=== PATIENT | female | born 1965 | race Caucasian/White ===

== ENCOUNTER → 2021-04-19 11:59 | Outpatient (CLI) | payer OTHER, SELFPAY ==
--- NOTE | ~2021-04-19 | MM_ITS ---
EXAMINATION: MM scrn diandra implant BI w sarthak HISTORY: Screening mammogram TECHNIQUE: Craniocaudal and mediolateral oblique 3-D tomosynthesis images with implant displacement a nd synthetic 2-D images were generated. Craniocaudal and mediolateral oblique views of the breasts wi thout implant displacement were obtained using full field digital mammography. CAD analysis was submi tted and interpreted. COMPARISON: 11/20/2017 BREAST PARENCHYMAL COMPOSITION: The breasts are heterogenously dense, which may obscure small masses. There are bilateral subpectoral silicone implants. FINDINGS: The left breast is stable without evidence for malignancy. There are developing asymmetries bilaterally in the right breast on CC view. There are no suspicious calcifications or architectural distortion. IMPRESSION: 1. Developing right breast asymmetry laterally on CC view. 2. Additional mammographic views and possible breast ultrasound are recommended. BI-RADS Category 0: Incomplete: Needs additional imaging evaluation. Reviewed, dictated and finalized at location A. IMPRESSION: 1. Developing right breast asymmetry laterally on CC view. 2. Additional mammographic views and possible breast ultrasound are recommended . BI-RADS Category 0: Incomplete: Needs additional imaging evaluation.
--- NOTE | ~2021-04-19 | DEXA_ITS ---
Bone Density Report Name: Melanie Hickman Age: 55 Sex: Female Ethnicity: White Date of : 1965 Indication: postmenopausal; screening for osteoporosis; Referring Provider: Jl Hickman Study: Bone densitometry was performed. Exam Date: April 19, 2021 Accession number: [id number] Bone Density: Region BMD T-score Z-score Classification AP Spine (L1-L4) 1.229 1.7 2.9 Normal Femoral Neck (Left) 1.021 1.6 2.7 Normal Total Hip (Left) 1.093 1.2 2.1 Normal Femoral Neck (Right) 1.071 2.0 3.2 Normal Total Hip (Right) 1.097 1.3 2.1 Normal Total Hip Mean 1.095 1.3 2.1 Normal World Health Organization criteria for BMD impression classify patients as: Normal (T-score at or above -1.0), Osteopenia (T-score between -1.0 and -2.5), or Osteoporosis (T-score at or below -2.5). 10-year Fracture Risk: FRAX not reported because: All T-scores for Spine Total, Hip Total, Femoral Neck at or above -1.0 Treated for osteoporosis Clinical Information Provided by Patient: Is being treated for osteoporosis Has used the following medications: HRT (i.e. estrogen/hormone therapy), Vitamin D, Calcium Patient maximum height was 67.5 Menopause Age: 42 Does not regularly consume dairy products Drinks caffeinated beverages Onset of menses at age 11 Number of children 4 Impression: The patient has normal bone mass. Discussion: It is important to ask patients whether they are taking their medications and to encourage continued and appropriate compliance with their osteoporosis therapies to reduce fracture risk. It is also important to review their risk factors and encourage appropriate calcium and vitamin D intakes, exercise, fall prevention and other lifestyle measures. Follow-Up: Consider a repeat BMD and Vertebral Fracture Assessment (VFA) exam in 2 years or sooner if medically necessary, to reassess this patient's status. Reported by: ALEXANDER on 04/19/2021 12:50:00 PM. Reviewed, dictated and finalized at location ABraulio MOHAN
== END ==
PROVIDERS: PCP Internal Medicine; Visit Provider Internal Medicine
DX: Z12.31 Encounter for screening mammogram for malignant neoplasm of breast (principal); Z78.0 Asymptomatic menopausal state; R92.8 Other abnormal and inconclusive findings on diagnostic imaging of breast
CPT/HCPCS: 77063; 77067; 77080

== ENCOUNTER 2021-04-22 13:34 | Outpatient (CLI) | payer OTHER, SELFPAY ==
[2021-04-22 15:11] LABS: Thyroid Stimulating Hormone < 0.015 uIU/mL (0.465-4.680)
[2021-04-22 15:47] LABS: Free T4 Free Thyroxine 2.18 ng/mL (0.78-2.19)
[2021-04-26 21:21] LABS: Triiodothyronine T3 Free 4.3 pg/mL (2.3-4.2)
== END 2021-04-22 13:35 | disposition home or self-care (01) ==
PROVIDERS: PCP Internal Medicine; Visit Provider Internal Medicine
DX: E06.1 Subacute thyroiditis (principal)
CPT/HCPCS: 36415; 84439; 84443; 84481

== ENCOUNTER → 2021-05-16 08:53 | Outpatient (CLI) | payer OTHER, SELFPAY ==
--- NOTE | ~2021-05-16 | MMUS_ITS ---
EXAMINATION: MM diagnostic mammo implant RT, US breast RT limited HISTORY: Follow-up right breast asymmetries TECHNIQUE: Additional 3-D tomosynthesis images of the right breast were performed and synthetic 2-D i mages were generated. CAD analysis was submitted and interpreted. High resolution Limited right breas t ultrasound was performed. COMPARISON: Comparison to multiple prior studies sequentially, with oldest reviewed study dated 12/2017. BREAST PARENCHYMAL COMPOSITION: Breast composed of scattered areas of fibroglandular density. FINDINGS: MAMMOGRAPHIC FINDINGS: The asymmetries lateral aspect of the right breast on CC view are less apparent with spot compression and lateral views. No discrete mass, architectural distortion or suspicious calcifications. ULTRASOUND: Limited right breast ultrasound: At 8:00, 6 cm from the nipple, there is a 3 mm cyst. At 9:00, 5.5 cm from the nipple, there is a cluster of microcysts. At 9:00, 5 cm from the nipple, there is a hypoech oic structure with without discrete mass when reviewed with serial cine images, likely benign. At 10: 00, 5 cm from the nipple, there is a 3 mm cyst. At 10:00, 7 cm from the nipple, there is an oval hypo echoic mass with circumscribed margins, parallel orientation, posterior acoustic enhancement and no i nternal vascularity measuring 7 mm, likely benign. IMPRESSION: 1. Probable benign masses of the left breast at 9:00, 5 cm from the nipple and 10:00, 7 cm from the n ipple. 2. Recommend 6 month follow-up left breast ultrasound. BI-RADS category 3, probably benign findings. Reviewed, dictated and finalized at location A. IMPRESSION: 1. Probable benign masses of the left breast at 9:00, 5 cm from the nipple and 10:00, 7 cm from the nipple. 2. Recommend 6 month follow-up left breast ultrasound. BI-RADS category 3, probably benign findings.
== END ==
PROVIDERS: PCP Internal Medicine; Visit Provider Clinical Nurse Specialist
DX: R92.8 Other abnormal and inconclusive findings on diagnostic imaging of breast (principal)
CPT/HCPCS: 76642; 77065

== ENCOUNTER 2021-05-30 13:11 | Outpatient (CLI) | payer OTHER, SELFPAY ==
[2021-05-30 15:18] LABS: Thyroid Stimulating Hormone < 0.015 uIU/mL (0.465-4.680)
[2021-05-30 15:36] LABS: Free T4 Free Thyroxine 2.06 ng/mL (0.78-2.19)
[2021-06-02 05:09] LABS: Thyroid Peroxidase Antibodies 33 IU/mL (<9)
[2021-06-02 13:36] LABS: Thyroid Stimulating Immunoglob <89 % baseline (<140)
[2021-06-03 13:53] LABS: Triiodothyronine T3 Free 4.1 pg/mL (2.3-4.2)
== END 2021-05-30 13:12 | disposition home or self-care (01) ==
PROVIDERS: PCP Internal Medicine; Visit Provider Internal Medicine
DX: E06.1 Subacute thyroiditis (principal)
CPT/HCPCS: 36415; 84439; 84443; 84445; 84481; 86376

== ENCOUNTER 2021-06-14 12:26 | Outpatient (CLI) | payer OTHER, SELFPAY ==
--- NOTE | ~2021-06-14 | MR_ITS ---
EXAMINATION: MR abdomen wo/w con DATE: 06/14/2021 13:23 INDICATION: Disease of pancreas TECHNIQUE: Magnetic resonance imaging (MRI) of the abdomen was performed without and with 13 mL Multi anna intravenous contrast. Sequences included coronal T2-weighted SS-FSE, coronal and axial FS 2D-F IESTA, axial STIR FSE, axial T2-weighted SS-FSE, axial T2-weighted FS SS-FSE, axial diffusion-weighte d SE, axial dual-echo T1-weighted FSPGR, and axial and coronal T1-weighted LAVA. Postcontrast axial T 1-weighted LAVA images were obtained in a time course. Postcontrast coronal T1-weighted LAVA images w ere obtained. COMPARISON: 08/30/2018 FINDINGS: Heart size is normal. No pericardial or pleural effusion. Bilateral breast implants. Again seen is a 3.1 x 2.2 cm hemangioma in the posterior right hepatic lobe with peripheral discontiguous puddling of contrast which progressively fills in on delayed images. Liver is otherwise unremarkable. No intrahe patic biliary ductal dilation. Gallbladder and common bile duct are normal. Normal right kidney. T2 h yperintense nonenhancing left renal cyst. No interval change in a likely benign 5 mm T2 hyperintense lesion at the dome of the spleen most likely a splenic cyst or granuloma. Left adrenal gland is alex l. No significant interval change in a 2.5 x 0.8 cm right adrenal nodule which given the interval sta bility would be most consistent with either adenoma or adrenal hyperplasia. There are three 4-6 mm cystic lesions at the body of the pancreas, 2 of which are unchanged since the prior study and the third, closest to head which is not visualized on the prior study although given its size this could be due to volume averaging. There is a new larger bilobed 1.9 x 1.7 cm cystic le cameron at the tail of the pancreas. No evident solid enhancing component of the cystic lesions or other evident solid pancreatic lesions with relatively homogeneous pancreatic parenchymal enhancement. No pancreatic fluid/edema to suggest acute pancreatitis. 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 Visualized portion of the bowels are unremarkable. No pathologically enlarged abdominal lymphadenopat hy. Moderate thoracic spondylosis and severe disc height loss at L4-L5. Normal bone marrow signal thr oughout with no pathologic marrow replacing process. IMPRESSION: 1. No change in the 2 previously noted 6 mm cystic lesions at the body of the pancreas with a 2 new c ystic lesions without enhancing components measuring 4 mm in the more proximal body and 0.9 x 1.7 cm bilobed cystic lesion at the tail of the pancreas. The differential diagnosis includes pseudocyst, in traductal papillary mucinous neoplasm (IPMN), mucinous cystic neoplasm (MCN), and the less common ser ous cystadenoma and neuroendocrine tumor. The multiplicity favors the former and would correlate for history of pancreatitis. Recommend continued annual pre and postcontrast MRI follow-up. 2. 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 3. No significant change in a 2.5 x 0.8 right adrenal mass which given the interval stability would f avor adenoma. Reviewed, dictated and finalized at location A. IMPRESSION: 1. No change in the 2 previously noted 6 mm cystic lesions at the body of the p ancreas with a 2 new cystic lesions without enhancing components measuring 4 mm in the more proximal body and 0.9 x 1.7 cm bilobed cystic lesion at the tail o f the pancreas. The differential diagnosis includes pseudocyst, intraductal pap illary mucinous neoplasm (IPMN), mucinous cystic neop
[2021-06-14 12:52] LABS: Estimated Glomerular Filt Rate > 60
== END 2021-06-14 12:27 | disposition home or self-care (01) ==
LOC: ANHIMG 12:27
PROVIDERS: PCP Internal Medicine; Visit Provider Nurse Practitioner
DX: K86.9 Disease of pancreas, unspecified (principal); I72.8 Aneurysm of other specified arteries; E27.9 Disorder of adrenal gland, unspecified
CPT/HCPCS: 74183; A9577

== ENCOUNTER 2021-07-13 12:23 | Outpatient (CLI) | payer OTHER, SELFPAY ==
[2021-07-13 13:51] LABS: Free T4 Free Thyroxine 0.63 ng/mL (0.78-2.19)
[2021-07-16 04:26] LABS: Thyroid Peroxidase Antibodies 30 IU/mL (<9)
[2021-07-16 08:52] LABS: Triiodothyronine T3 Free 2.2 pg/mL (2.3-4.2)
[2021-07-19 14:12] LABS: Thyroid Stimulating Immunoglob <89 % baseline (<140)
== END 2021-07-13 12:24 | disposition home or self-care (01) ==
PROVIDERS: PCP Internal Medicine; Visit Provider Internal Medicine
DX: E06.1 Subacute thyroiditis (principal)
CPT/HCPCS: 36415; 84439; 84443; 84445; 84481; 86376

== ENCOUNTER → 2021-11-17 14:46 | Outpatient (CLI) | payer OTHER, SELFPAY ==
--- NOTE | ~2021-11-17 | US_ITS ---
US breast RT limited 11/17/2021 15:04 Indication: Follow-up right breast masses Procedure: High-resolution Limited right breast ultrasound Comparison: 05/16/2021 Findings: At 9:00, 5 cm from the nipple, there is a hypoechoic mass measuring 4 mm maximum dimension lying adjacent to the breast implant, decreased in size compared with prior examination allowing for differences of technique. At 10:00, 7 cm from the nipple there is an oval hypoechoic mass with parallel orientation, no signifi cant posterior features and no internal vascularity measuring 6 x 6 x 2 mm, unchanged from prior exam ination allowing for differences of technique, likely benign intramammary lymph node or complicated c yst. Impression: 1: Stable or decreased size of likely benign right breast masses compared with prior ultrasound exami nation. BI-RADS CATEGORY 3-PROBABLY BENIGN FINDING RECOMMENDATION: Six-month follow-up diagnostic mammogram and Limited right breast ultrasound recommen ded. Reviewed, dictated and finalized at location A. SCIENCE RESEARCH ASSISTANT Impression: 1: Stable or decreased size of likely benign right breast masses compared with prior ultrasound examination. BI-RADS CATEGORY 3-PROBABLY BENIGN FINDING RECOMMENDATION: Six-month follow-up diagnostic mammogram and Limited right carlos st ultrasound recommended.
== END ==
PROVIDERS: PCP Internal Medicine; Visit Provider Internal Medicine
DX: R92.8 Other abnormal and inconclusive findings on diagnostic imaging of breast (principal)
CPT/HCPCS: 76642

== ENCOUNTER 2022-02-15 13:27 | Outpatient (CLI) | payer OTHER, SELFPAY ==
[2022-02-15 15:06] LABS: Free T4 Free Thyroxine 1.12 ng/mL (0.78-2.19)
[2022-02-15 15:10] LABS: Thyroid Stimulating Hormone 0.969 uIU/mL (0.465-4.680)
[2022-02-18 06:05] LABS: Triiodothyronine T3 Free 2.5 pg/mL (2.3-4.2)
== END 2022-02-15 13:28 | disposition home or self-care (01) ==
LOC: ANHLAB 13:29
PROVIDERS: PCP Internal Medicine; Visit Provider Nurse Practitioner
DX: E03.9 Hypothyroidism, unspecified (principal)
CPT/HCPCS: 36415; 84439; 84443; 84481

== ENCOUNTER 2022-06-09 09:06 | Emergency (ER) | payer OTHER, SELFPAY ==
--- NOTE | ~2022-06-09 | CT_ITS ---
EXAMINATION: CT brain wo con DATE: 06/09/2022 10:23 INDICATION: Dizziness. History of migraine headaches. TECHNIQUE: Computed tomography (CT) of the head was performed without intravenous contrast. The mA wa s adjusted according to patient size. Iterative reconstruction technique was employed. Exam dose: 60 5.33 mGy-cm total exam DLP. COMPARISON: 08/09/2018 MRI brain/brainstem FINDINGS: No intracranial mass lesion or hemorrhage or cerebrovascular accident. No midline shift or mass effect effect. No subdural or epidural hematoma. No fracture or bone destruction of the cranial vault. The mastoid air cells and included paranasal si nuses are unremarkable. IMPRESSION: No significant abnormality Reviewed, dictated and finalized at Location A. Reviewed, dictated and finalized at location B. IMPRESSION: No significant abnormality
[2022-06-09 09:13] VITALS: BP 158/89; PULSE 58; RESP 18; TEMP 36.4; O2SAT 100
--- NOTE | 2022-06-09 09:24 | ECG_ITS ---
Measurements Intervals [place] Rate: 51 P: 33 [place]: 225 QRS: 15 QRSD: 105 T: 23 QT: 444 QTc: 412 Interpretive Statements SINUS BRADYCARDIA WITH FIRST DEGREE AV BLOCK RSR' IN V1 OR V2, CONSIDER RIGHT VENTRICULAR HYPERTROPHY OR RIGHT VCD ABNORMAL ECG Electronically Signed On 06-09-2022 16:42:47 CDT by Shabbir Kiran D.O.
--- NOTE | 2022-06-09 09:45 | ED.DIZZY ---
HPI - Dizziness General Chief Complaint: Dizziness Stated Complaint: dizziness, nausea, and vomiting since yesterday. Time Seen by Provider: 06/09/22 09:23 Source: patient and family Mode of arrival: wheelchair Limitations: no limitations History of Present Illness HPI Narrative: This is a 56 year old female that presents to the ER for dizziness. Ongoing over the last couple of days. Worse with movement and relieved with rest. Associated with nausea and vomiting. Also reports headaches. She does have history of migraines. Reports she has had several similar episodes in the last couple of months. Denies fever, vision changes, or focal numbness or weakness. Related Data Home Medications Medication Instructions Recorded Confirmed levothyroxine 50 mcg tablet 50 mcg PO DAILY 01/11/22 01/11/22 Allergies Allergy/AdvReac Type Severity Reaction Status Date / Time No Known Allergies Allergy Verified 06/09/22 10:04 Review of Systems Review of Systems: CONSTITUTIONAL: Denies fever EYES: Denies visual changes GASTROINTESTINAL: Reports nausea, vomiting NEUROLOGIC: Reports headache. Denies numbness, or weakness. All systems reviewed & are unremarkable except as noted in HPI and below PMFSH Past Medical History Medical History Elevated liver enzymes Liver mass Migraine headache Social History Social History Smoking status: Never smoker Alcohol intake: current Exam Narrative: GENERAL: Well-appearing, well-nourished, and in no acute distress. HEAD: Normocephalic, atraumatic. EYES: PERRLA and EOMI. ENT: Nares clear, no rhinorrhea or epistaxis. Mucous membranes moist. Oropharynx without tonsillar hypertrophy exudate or other lesions. Bilateral TMs pearly browne non-bulging NECK: Supple. No adenopathy or masses. CHEST: Clear to auscultation. No respiratory distress. No wheezes rales or rhonchi HEART: Regular rate and rhythm. No murmur heard. Normal peripheral pulses. ABDOMEN: Soft, nontender, nondistended, normal active bowel sounds. EXTREMITIES: Normal range of motion. No edema. Strength equal in bilateral upper and lower extremities (5/5) SKIN: Warm, dry, no rash. NEURO: No focal deficits. Alert and oriented x3. Cranial nerves II through XII grossly intact. Normal finger-nose. Normal [id number] PSYCH: Normal mood and affect Course Consultations Consultation #1: Patient's primary doctor was updated on case findings Date: 06/09/22 Time: 12:35 Vital Signs Vital signs: Vital Signs Temperature 97.5 F L 06/09/22 09:13 Pulse Rate 58 L 06/09/22 09:13 Respiratory Rate 18 06/09/22 09:13 Blood Pressure 158/89 H 06/09/22 09:13 Pulse Oximetry 100 06/09/22 09:13 Oxygen Delivery Room Air 06/09/22 09:13 Temperature 97.5 F L 06/09/22 09:13 Pulse Rate 61 06/09/22 12:50 Respiratory Rate 12 06/09/22 12:50 Blood Pressure 142/84 H 06/09/22 12:50 Pulse Oximetry 100 06/09/22 12:50 Oxygen Delivery Room Air 06/09/22 09:13 MDM - Dizziness MDM Narrative Medical decision making narrative: Patient presents to the emergency department for episodes of dizziness ongoing over the last couple of months. She is afebrile and nontoxic-appearing. She is neurologically intact. Her vitals are stable. CBC with white blood cell count of 3.7. Hemoglobin is normal. Metabolic panel without concerning findings. UA without evidence of infection. Influenza and COVID screens are negative. CT scan of the brain without concerning findings. EKG without concerning changes. Patient was updated on case findings. Patient hydrated and given meclizine and Valium with relief. Able to ambulate in the ED with a steady gait without return of symptoms. She is stable and felt appropriate for further outpatient evaluation. Instructed to have close follow-up with her primary doctor. She was given warnings to
[2022-06-09] MEDS: MECLIZINE HCL 25 MG TABLET PO (10:05)
[2022-06-09] MEDS: SODIUM CHLORIDE 0.9% IV 1,000 ML 999 ML IV CONT (10:05)
[2022-06-09] MEDS: ONDANSETRON INJ 4 MG/2 ML VIAL IV PUSH (10:05)
[2022-06-09 10:06] LABS: Basophils Percent Auto 1.1 % (0.2-1.2); Eosinophils Absolute Auto 0.1 K/mm3 (0-0.3); Eosinophils Percent Auto 1.6 % (0-4.4); Hematocrit 36.1 % (37.0-47.0); Hemoglobin 12.2 g/dL (12.0-15.0); Lymphocytes Absolute Auto 0.91 K/mm3 (0.9-3.2); Lymphocytes Percent Auto 24.9 % (18.3-44.2); Mean Corpuscular HGB Conc 33.8 g/dl (32-36); Mean Corpuscular Volume 97.6 fl (80-100); Mean Platelet Volume 9.2 fl (7.4-10.4); Monocytes Absolute Auto 0.4 K/mm3 (0.1-0.6); Monocytes Percent Auto 10.4 % (2.6-8.5); Neutrophils Absolute Auto 2.3 K/mm3 (1.3-6.7); Platelet Count Result 170 k/mm3 (150-375); Red Cell Distribution Width 11.9 % (11.5-14.5); White Blood Count 3.7 K/mm3 (4.5-10.0)
[2022-06-09 10:20] LABS: Appearance Urine Clear (Clear); Bilirubin Urine 1+ (Negative); Blood Urine Negative (Negative); Color Urine Yellow (Yellow); Glucose Urine UA Negative (Negative); Ketones Urine Negative (Negative); Leukocyte Esterase Ur Negative LEU/UL (Negative); Nitrate Urine Negative (Negative); Protein Urine Negative (Negative); pH Urine 7.5 (5.0-9.0)
[2022-06-09 10:20] LABS: Alanine Aminotransferase 111 U/L (6-35); Albumin Level 4.7 g/dL (3.5-5.1); Alkaline Phosphatase 137 U/L (38-126); Anion Gap 6 mmol/L (8-16); Aspartate Amino Transferase 47 U/L (14-36); Bilirubin,Total 0.5 mg/dL (0.2-1.3); Blood Urea Nitrogen 7 mg/dL (7-17); Calcium 9.5 mg/dL (8.4-10.2); Carbon Dioxide 30 mmol/L (22-30); Chloride 105 mmol/L (98-107); Estimated CRCL calculation 84 ml/min; Estimated Glomerular Filt Rate > 60; Glucose 89 mg/dL (65-110); Potassium 3.8 mmol/L (3.4-5.0); Sodium 141 mmol/L (137-145)
[2022-06-09 10:22] LABS: Add Urine Microscopic? YES
[2022-06-09 10:41] LABS: RBC Urine 0-2 /hpf (0-2); Squamous Epithelial Cell Urine Few /hpf (Few); WBC Urine 0-3 /hpf
[2022-06-09 10:42] LABS: Mucus Urine Rare /lpf
[2022-06-09 11:03] VITALS: BP 142/86; PULSE 63; RESP 14; O2SAT 100
[2022-06-09] MEDS: diazePAM INJ (*CRX) 10 MG/2 ML SYRINGE 5 MG IV PUSH (11:09)
[2022-06-09 11:28] LABS: Influenza A QL RT-PCR Negative (Negative); Influenza B QL RT-PCR Negative (Negative); SARS-CoV-2 RNA PCR Negative
[2022-06-09 11:34] LABS: Monoscreen Negative (Negative); Negative Monotest Control Negative (Negative); Positive Monotest Control Positive (Positive)
[2022-06-09 11:53] VITALS: BP 155/96; PULSE 55; RESP 14; O2SAT 100
[2022-06-09 12:50] VITALS: BP 142/84; PULSE 61; RESP 12; O2SAT 100
== END 2022-06-09 12:53 | disposition home or self-care (01) ==
PROVIDERS: Nurse Practitioner; Physician Assistant; Emergency Provider General Practice; PCP Internal Medicine
DX: R42 Dizziness and giddiness (principal); Z20.822 Contact with and (suspected) exposure to COVID-19; R00.1 Bradycardia, unspecified; R94.31 Abnormal electrocardiogram [ECG] [EKG]; I44.0 Atrioventricular block, first degree
CPT/HCPCS: 36415; 70450; 80053; 81001; 84443; 85025; 86308; 87502; 93005; 96361; 96365; 96375; 99284; A9270; C9803; J0131; J2405; J3360; J7030; U0003; U0005

== ENCOUNTER 2022-07-03 07:56 | Outpatient (CLI) | payer OTHER, SELFPAY | END 2022-07-03 07:57 | disposition home or self-care (01) | LOC: ANHAUDASC 07:58 | PROVIDERS: PCP Internal Medicine; Visit Provider Nurse Practitioner | DX: H93.19 Tinnitus, unspecified ear (principal); R42 Dizziness and giddiness; H90.3 Sensorineural hearing loss, bilateral | CPT/HCPCS: 92557; 92567 ==

== ENCOUNTER → 2023-01-23 13:08 | Outpatient (CLI) | payer OTHER, SELFPAY ==
--- NOTE | ~2023-01-23 | MR_ITS ---
EXAMINATION: MR femur LT wo con DATE: 01/23/2023 13:53 INDICATION: Left gluteal and upper thigh pain with swelling and bruising. TECHNIQUE: Magnetic resonance imaging (MRI) of the left thigh was performed without intravenous contr ast. Sequences included axial, sagittal and coronal T1-weighted FSE, and fluid sensitive FSE STIR. COMPARISON: None. FINDINGS: Bone alignment is normal. Normal bone marrow signal throughout. No fracture, stress reaction, osteone crosis or pathologic marrow replacing process. Shallow fluid signal intensity cleft at the chondral l abral junction at the superolateral aspect of both the left and right acetabula. Mild osteoarthritis at the left hip with relatively preserved joint space and tiny marginal osteophytes along the rim of the left acetabulum. Symmetric physiologic amount of fluid in the bilateral hip and knee joints. Ther e is asymmetric mild tendinopathy without discrete tear or associated bursitis at the left ischial tu berosity origin of the proximal left hamstring tendons. Mild tendinopathy without discrete tear at th e distal left gluteus minimus tendon. Subtle nonspecific heterogeneous mild increased muscle fluid si gnal in the bilateral thighs most prominent in the quadriceps and gluteus emily muscles. No fatty m uscular atrophy. Partially visualized moderate to severe disc height loss at L4-L5. Small amount of l ikely physiologic free fluid in the cul-de-sac. The bladder, uterus and visualized portions of the al wels are unremarkable. IMPRESSION: 1. Mild tendinopathy without tear or bursitis at the left ischial tuberosity origin of the proximal h amstring tendons and at the anterior left greater trochanteric insertion of the left gluteus minimus tendon. 2. Regions of subtly increased fluid signal involving the musculature of the proximal thighs. There i s a wide differential for increased muscle signal however given the relatively symmetric distribution the most likely differential would include delayed onset muscle soreness related to recent physical exertion, inflammatory myopathy suggest polymyositis, dermatomyositis or mixed connective tissue diso rder and medication related myelopathy. 3. Mild left hip osteoarthritis. 4. Partially visualized moderate to severe spondylosis at L4-L5. Reviewed, dictated and finalized at location A. NG MACHINE OPERATOR IMPRESSION: 1. Mild tendinopathy without tear or bursitis at the left ischial tuberosity or igin of the proximal hamstring tendons and at the anterior left greater trochan teric insertion of the left gluteus minimus tendon. 2. Regions of subtly increased fluid signal involving the musculature of the pr oximal thighs. There is a wide differential for increased muscle signal however given the relatively symmetric distribution the most likely differential would include delayed onset muscle soreness related to recent physical exertion, inf lammatory myopathy suggest polymyositis, dermatomyositis or mixed connective ti ssue disorder and medication related myelopathy. 3. Mild left hip osteoarthritis. 4. Partially visualized moderate to severe spondylosis at L4-L5.
== END ==
PROVIDERS: PCP Clinical Nurse Specialist; Visit Provider Clinical Nurse Specialist
DX: M79.652 Pain in left thigh (principal); M16.12 Unilateral primary osteoarthritis, left hip
CPT/HCPCS: 73721

== ENCOUNTER 2023-03-13 12:48 | Outpatient (CLI) | payer OTHER, SELFPAY ==
--- NOTE | ~2023-03-13 | XR_ITS ---
EXAMINATION: XR lg joint inject/asp w image DATE: 03/13/2023 14:20 INDICATION: Right hip pain. TECHNIQUE: A time-out was performed to verify the patient's name, date of , and procedure to b e performed. The procedure including the risks, benefits, and alternatives was discussed with the pat ient. Risks discussed included bleeding and infection. The patient understood the risks and agreed to proceed. The skin overlying the right hip joint was prepped and draped in usual sterile fashion. A nesthetic was administered with 1% lidocaine subcutaneously. A 22 G needle was advanced under fluoro scopic guidance into the joint. Subsequently, injectate consisting of 3 mL 1% lidocaine and 1 mL 80 mg/mL Depo-Medrol was instilled. The needle was removed and the entry site was cleaned and dressed. There were no immediate complications. Fluoroscopy exposure time was 0.1 minutes. The total number o f images was 1. FINDINGS: Real-time fluoroscopy demonstrates the needle in the right hip joint. IMPRESSION: 1. Fluoroscopy guided right hip joint injection of local anesthetic and steroid. Reviewed, dictated and finalized at location A. IMPRESSION: 1. Fluoroscopy guided right hip joint injection of local anesthetic and steroid .
--- NOTE | ~2023-03-13 | XR_ITS ---
EXAMINATION: XR lg joint inject/asp add DATE: 03/13/2023 14:20 INDICATION: Left hip pain. TECHNIQUE: A time-out was performed to verify the patient's name, date of , and procedure to b e performed. The procedure including the risks, benefits, and alternatives was discussed with the pat ient. Risks discussed included bleeding and infection. The patient understood the risks and agreed to proceed. The skin overlying the left hip joint was prepped and draped in usual sterile fashion. An esthetic was administered with 1% lidocaine subcutaneously. A 22 G needle was advanced under fluoros copic guidance into the joint. Subsequently, injectate consisting of 3 mL 1% lidocaine and 1 mL 80 m g/mL Depo-Medrol was instilled. The needle was removed and the entry site was cleaned and dressed. There were no immediate complications. Fluoroscopy exposure time was 0.1 minutes. The total number of images was 1. FINDINGS: Real-time fluoroscopy demonstrates the needle in the left hip joint. IMPRESSION: 1. Fluoroscopy guided left hip joint injection of local anesthetic and steroid. Reviewed, dictated and finalized at location A.
== END 2023-03-13 12:49 | disposition home or self-care (01) ==
PROVIDERS: PCP Clinical Nurse Specialist; Visit Provider Orthopaedic Surgery
DX: M25.552 Pain in left hip (principal); M70.62 Trochanteric bursitis, left hip; M16.0 Bilateral primary osteoarthritis of hip; M51.37 Other intervertebral disc degeneration, lumbosacral region
CPT/HCPCS: 20610; 77002; J1040

== ENCOUNTER 2023-11-02 16:56 | Outpatient (CLI) | payer OTHER, SELFPAY ==
--- NOTE | ~2023-11-02 | CT_ITS ---
EXAMINATION: CT abdomen pelvis w con DATE: 11/02/2023 17:18 INDICATION: Left lower quadrant abdominal pain. TECHNIQUE: Computed tomography (CT) of the abdomen and pelvis was performed with 100 mL Omnipaque 350 intravenous contrast. Automated exposure control and iterative reconstruction technique were employe d. The dose-length product was 259.32 mGy-cm. COMPARISON: Abdomen MRI 06/14/2021 FINDINGS: The visualized portions of the lung bases demonstrate mild atelectasis. No pleural effusion . The heart size is normal. No pericardial effusion. Breast implants are noted. There is a 2.6 cm mas s right hepatic lobe with interrupted peripheral puddling of contrast, consistent with a hemangioma. The gallbladder is normal. There is a 6 mm cyst in the spleen. There is a 15 mm cyst in the pancreas. The adrenal glands and kidneys are normal. There is a 19 mm mass in the uterus centered at the endom etrial complex. There are no dilated loops of bowel. The appendix is not visualized. There are no pat hologically enlarged lymph nodes. There is no free intraperitoneal fluid. There is severe lumbar spon dylosis. There are chronic bilateral L5 pars defects. There is mild chronic anterior wedging of T10 a nd T11 vertebral bodies. IMPRESSION: 1. 19 mm mass in the uterus. The differential diagnosis includes fibroid, endometrial carcinoma, and polyp. Endometrial biopsy is recommended. 2. Stable 15 mm pancreatic cyst. The differential diagnosis includes pseudocyst, intraductal papillar y mucinous neoplasm (IPMN), mucinous cystic neoplasm (MCN), serous cystadenoma, and neuroendocrine tu mor. Abdomen MRI without and with contrast is recommended in one year. Reviewed, dictated and finalized at location A. LSTERY DEPARTMENT SUPERVISOR IMPRESSION: 1. 19 mm mass in the uterus. The differential diagnosis includes fibroid, endom etrial carcinoma, and polyp. Endometrial biopsy is recommended. 2. Stable 15 mm pancreatic cyst. The differential diagnosis includes pseudocyst , intraductal papillary mucinous neoplasm (IPMN), mucinous cystic neoplasm (MCN ), serous cystadenoma, and neuroendocrine tumor. Abdomen MRI without and with c ontrast is recommended in one year.
[2023-11-02 17:13] LABS: Estimated Glomerular Filt Rate > 60
== END 2023-11-02 16:57 | disposition home or self-care (01) ==
PROVIDERS: PCP Clinical Nurse Specialist; Visit Provider Internal Medicine
DX: R10.32 Left lower quadrant pain (principal)
CPT/HCPCS: 74177; Q9967

== ENCOUNTER 2023-11-04 11:29 | Observation (INO) | payer OTHER, SELFPAY ==
[2023-11-04] VITALS (27 sets, daily range): BP systolic 121–172; BP diastolic 64–94; PULSE 53–72; RESP 8–22; TEMP 36.1–36.3; O2SAT 94–100
--- NOTE | ~2023-11-04 | US_ITS ---
EXAMINATION: US OB transvaginal DATE: 11/04/2023 14:31 INDICATION: left lower quadrant pain, r/o ovarian torsion TECHNIQUE: Multiple transabdominal and endovaginal sonographic images of the pelvis were obtained. COMPARISON: CT abdomen pelvis, same date. FINDINGS: Uterus: 7.5 x 3.6 x 4.3 cm. Anteverted uterus. 1 cm uterine fibroid in the posterior uterine body. En dometrial complex measures 2 mm. Right Ovary: 2.1 x 1.0 x 1.9 cm. Vascular flow is present. No adnexal mass Left Ovary: 1.9 x 0.8 x 1.3 cm. Vascular flow is present. No adnexal mass There is small volume free fluid in the pelvis. IMPRESSION: 1 cm uterine fibroid. Unremarkable ovaries. No sonographic evidence of ovarian torsion.. Reviewed, dictated and finalized at location [facility]
--- NOTE | ~2023-11-04 | CT_ITS ---
EXAMINATION: CT abdomen pelvis wo/w con DATE: 11/04/2023 12:43 INDICATION: Severe left lower quadrant pain. TECHNIQUE: Computed tomography (CT) of the abdomen and pelvis was performed without and with 100 cc O mnipaque 350 intravenous contrast. The dose-length product was 484.70 mGy-cm. Automated exposure cont rol and iterative reconstruction technique were employed. COMPARISON: CT dated 11/02/2013 FINDINGS: Stable hemangioma right hepatic lobe posteriorly measuring 2.5 x 2.2 cm. Lung bases unremar kable. No significant pleural or pericardial effusion. There are breast implants. Heart size normal. No renal stones or hydronephrosis. Stable pancreatic cystic mass involving the body measuring 1.9 cm maximum axial dimension. The spleen, left adrenal gland and right kidney are unremarkable. There is a subcentimeter hypodensity of the left kidney, most likely benign cysts. There is a 12 mm right adren al nodule, likely benign adenoma. Gallbladder is present. Nonobstructive bowel gas pattern. There is moderate retained fecal material in the colon and rectum. No obstruction. No free air or free fluid. Hypovascular area noted in the uterus which may represent focal fluid in the endometrium. Consider co rrelation with ultrasound. Stable focal aneurysm measuring 1.5 cm, image 51, possibly the inferior pa ncreaticoduodenal artery. There are multiple segments of proximal small bowel wall thickening, suspic ious for enteritis. There is moderate disc narrowing at L4-5. There is grade 1 spondylolisthesis at L 5-S1 secondary to bilateral spondylolysis. IMPRESSION: 1. Multiple segments of proximal small bowel wall thickening, suspicious for enteritis. 2: Stable pancreatic cystic mass of the body. The differential diagnosis includes pseudocyst, intradu ctal papillary mucinous neoplasm (IPMN), mucinous cystic neoplasm (MCN), and the less common serous c ystadenoma and neuroendocrine tumor. 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 Reviewed, dictated and finalized at location [facility] [employer] IMPRESSION: 1. Multiple segments of proximal small bowel wall thickening, suspicious for en teritis. 2: Stable pancreatic cystic mass of the body. The differential diagnosis includ es pseudocyst, intraductal papillary mucinous neoplasm (IPMN), mucinous cystic neoplasm (MCN), and the less common serous cystadenoma and neuroendocrine tumor . 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
--- NOTE | 2023-11-04 11:45 | ED.ABDPAIN ---
HPI - Abdominal Pain General Chief Complaint: Abdominal Pain <Perez Riley APRN - Last Filed: 11/04/23 16:03> Stated Complaint: abd pain x2 days <Perez Riley APRN - Last Filed: 11/04/23 16:03> Time Seen by Provider: 11/04/23 11:41 <Perez Riley APRN - Last Filed: 11/04/23 16:03> Source: patient <Perez Riley APRN - Last Filed: 11/04/23 16:03> Mode of arrival: ambulatory <Perez Riley APRN - Last Filed: 11/04/23 16:03> Limitations: no limitations <Perez Riley APRN - Last Filed: 11/04/23 16:03> History of Present Illness HPI narrative: Ms. Hickman is a 58-year-old female patient presenting to the ED today with complaints of of lower quadrant abdominal pain times 3 days. Pain is sharp and constant in the left lower quadrant. Rates her pain 10/10 currently. She denies fever, chills, bodyaches,or associated nausea or vomiting. Last BM was on Sunday. Had CT abdomen/pelvis on Sunday and showed incidental finding of possible <Perez Riley APRN - Last Filed: 11/04/23 16:03> Related Data Home Medications: Home Medications Medication Instructions Recorded Confirmed estradiol 2 mg tablet 2 mg PO DAILY 11/04/23 11/04/23 meloxicam 15 mg tablet 15 mg PO HS 11/04/23 11/04/23 multivit-iron 18 mg-folic acid 400 1 tablet PO DAILY 11/04/23 11/04/23 mcg-calcium 500 mg-minerals tablet (Women's One Daily) progesterone micronized 200 mg 200 mg PO HS 11/04/23 11/04/23 capsule valacyclovir 500 mg tablet 500 mg PO Q12H PRN shingles 11/04/23 11/04/23 (Valtrex) <Perez Riley APRN - Last Filed: 11/04/23 16:03> Allergies/Adverse Reactions: Allergies Allergy/AdvReac Type Severity Reaction Status Date / Time No Known Allergies Allergy Verified 11/04/23 18:26 <Perez Riley APRN - Last Filed: 11/04/23 16:03> Review of Systems Review of Systems: Pertinent positives per HPI. Patient denies any fever, chills, rash, headache, visual changes, dizziness, cough, runny nose, sore throat, shortness of breath, chest pain, palpitations, nausea, vomiting, diarrhea, or any urinary issues. <Perez Riley APRN - Last Filed: 11/04/23 16:03> [facility] Past Medical History Medical History: Medical History Elevated liver enzymes Liver mass Migraine headache <Perez Riley APRN - Last Filed: 11/04/23 16:03> Family History Family History: Family History (Updated 11/04/23 @ 18:35 by Anna Apple RN) Grandparent Breast cancer Mother Graves disease <Perez Riley APRN - Last Filed: 11/04/23 16:03> Social History Social History: Social History (Updated 01/09/23 @ 11:36 by Osiris Baker MA) Smoking status: Never smoker Alcohol intake: current Drinks per week: 3 Substance use: current Substance use type: other Other substance usage details: CBD gummy for sleep Lack of Transportation: No Lack of Food: Never True Current Housing: I Have Housing Concerned About Future Housing: No Difficulty Paying Gas/Electric Bills: No Difficulty Paying for Meds: No Currently Unemployed: No Education: Master's Degree or Higher Difficulty w/ Childcare or Family Care: No Spiritual care concerns: No <Perez Riley APRN - Last Filed: 11/04/23 16:03> Comments At the time of my signature, I reviewed and agree with the nursing past medical, surgical, social, and family history. There is no relevant family history pertinent to the patient complaint. <Perez Riley APRN - Last Filed: 11/04/23 16:03> Course Course Emergency Course: Portions of this record may have been created with voice recognition software. <Perez Riley APRN - Last Filed: 11/04/23 16:03> TOOL CHASER/PA Physician Supervision For this patient encounter, I reviewed the TOOL CHASER or PA documentation, treatment plan, and
[2023-11-04] MEDS: HYDROmorphone HCL INJ (*CRX) 1 MG/ML SYR 0.5 MG IV PUSH ×2 (11:59→12:25)
[2023-11-04] MEDS: ONDANSETRON INJ 4 MG/2 ML VIAL IV PUSH ×2 (11:59→15:43)
[2023-11-04] MEDS: SODIUM CHLORIDE 0.9% IV 1,000 ML 999 ML IV CONT ×2 (12:01→17:06)
[2023-11-04 12:06] LABS: Basophils Absolute Auto 0.1 K/mm3 (0.0-0.1); Basophils Percent Auto 0.7 % (0.2-1.2); Eosinophils Absolute Auto 0.1 K/mm3 (0-0.3); Eosinophils Percent Auto 1.5 % (0-4.4); Hematocrit 40.4 % (37.0-47.0); Hemoglobin 13.5 g/dL (12.0-15.0); Immature Granulocyte Absolute 0.02 K/mm3 (0.00-0.031); Immature Granulocyte Percent A 0.3 % (0-0.5); Lymphocytes Absolute Auto 1.83 K/mm3 (0.9-3.2); Lymphocytes Percent Auto 26.6 % (18.3-44.2); Mean Corpuscular HGB Conc 33.4 g/dl (32-36); Mean Corpuscular Hemoglobin 32.9 pg (26-34); Mean Corpuscular Volume 98.5 fl (80-100); Mean Platelet Volume 9.7 fl (7.4-10.4); Monocytes Absolute Auto 0.5 K/mm3 (0.1-0.6); Monocytes Percent Auto 6.5 % (2.6-8.5); Neutrophils Absolute Auto 4.4 K/mm3 (1.3-6.7); Neutrophils Percent Auto 64.4 % (45.5-73.1); Platelet Count Result 169 k/mm3 (150-375); Red Cell Distribution Width 11.9 % (11.5-14.5); White Blood Count 6.9 K/mm3 (4.5-10.0)
[2023-11-04 12:16] LABS: Alanine Aminotransferase 35 U/L (6-35); Albumin Level 4.5 g/dL (3.5-5.1); Alkaline Phosphatase 63 U/L (38-126); Anion Gap 5 mmol/L (8-16); Aspartate Amino Transferase 29 U/L (14-36); Bilirubin,Total 0.6 mg/dL (0.2-1.3); Blood Urea Nitrogen 13 mg/dL (7-17); Carbon Dioxide 27 mmol/L (22-30); Chloride 107 mmol/L (98-107); Estimated CRCL calculation 71 ml/min; Estimated Glomerular Filt Rate > 60; Glucose 113 mg/dL (65-110); Lipase 35 U/L (23-300); Potassium 4.3 mmol/L (3.4-5.0); Sodium 139 mmol/L (137-145)
[2023-11-04 12:22] LABS: Appearance Urine Cloudy (Clear); Bacteria Urine None Seen /hpf; Bilirubin Urine Negative (Negative); Blood Urine Negative (Negative); Color Urine Dark Yellow (Yellow); Glucose Urine UA Negative (Negative); Ketones Urine Trace mg/dL (Negative); Leukocyte Esterase Ur Negative LEU/UL (Negative); Need Manual Microscopic Reviewed; Nitrate Urine Negative (Negative); Protein Urine Negative (Negative); RBC Urine 0-2 /hpf (0-2); Specific Grav Ur 1.026 (1.001-1.035); Squamous Epithelial Cell Urine Few /hpf (Few); WBC Urine 0-5 /hpf; pH Urine 6.5 (5.0-9.0)
[2023-11-04 12:25] LABS: Add Urine Microscopic? YES
[2023-11-04] MEDS: METOCLOPRAMIDE HCL INJ 10 MG/2 ML VIAL IV PUSH ×2 (12:25→20:09)
[2023-11-04] MEDS: HYDROmorphone HCL INJ (*CRX) 1 MG/ML SYR IV PUSH (13:12)
[2023-11-04] MEDS: KETOROLAC 15 MG/ML VIAL (*BKC) IV PUSH ×2 (14:52→16:07)
[2023-11-04 17:33] LABS: Erythrocyte Sedimentation Rate 15 mm/hr (0-20)
--- NOTE | 2023-11-04 17:59 | ADMGEN ---
This patient, Melanie Hickman, was admitted to Medical Room 348-01. Patient/family oriented to hospital policies and general routines including ID bracelet, bed and alarms, visiting hours, pain management, procedures, bathroom and other care routines, personal items, smoking policy, room service/diet, and visiting hours. Information on how to activate the Rapid Response Team has been discussed. Patient/Family are encouraged to report perceived risks to care and to ask questions if they do not understand what they are told or what they should do.
[2023-11-04] MEDS: SODIUM CHLORIDE 0.9% IV 1,000 ML 125 ML IV CONT (18:40)
--- NOTE | 2023-11-04 18:57 | PC.NURSE ---
Called provider Rosa requesting orders for nausea and pain awaiting return call
[2023-11-04] MEDS: DOCUSATE SODIUM 400 MG/400 ML ENEMA RECTAL (21:14)
--- NOTE | 2023-11-04 21:36 | PM.IMHP ---
H&P: HPI History of Present Illness Date/Time: 11/04/23 18:00 Chief Complaint: Abdominal pain. 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 The patient provides the following history. She felt fine when she woke on morning and as the day progressed she almost suddenly developed a pain throughout the lower abdomen which she describes as a terrible menstrual cramp. That waxed and waned throughout the day and she was able to sleep that evening however the pain was much worse on Sunday. She has a history of constipation and initially attributed her symptoms to that. Suppositories have only caused an increase in pain. CT of the abdomen and pelvis taken on 11/02/2023 showed a 19 mm mass in the uterus with a differential diagnosis to include fibroid, endometrial cancer, and polyp and other stable findings as detailed above. Over the weekend she has treated her pain with Tylenol and she has been able to sleep somewhat with the gummies that she typically takes before bedtime. Today she has continued to have pain ongoing nausea and reports having a couple of episodes of dry heaves. She has not had a bowel movement for nearly 1 weeks time. She denies fever, chills, sweats, hematemesis, hematochezia, melena, dysuria, hematuria, vaginal discharge, and vaginal bleeding. No known sick contacts. In the ED: She was afebrile on arrival with stable vital signs. CMP and CBC were essentially unremarkable. Urinalysis showed trace ketones. Repeat CT of the abdomen pelvis showed multiple segments of proximal small bowel wall thickening suspicious for enteritis and stable pancreatic cystic mass of the body and a stable aneurysm in the right upper abdomen which she is followed for closely at [facility][1]. a moderate amount of retained fecal material was noted in the colon and rectum. Transvaginal ultrasound showed a 1 cm uterine fibroid. Interventions thus far include 2 L normal saline, 4 mg ondansetron, 10 mg metoclopramide, 15 mg ketorolac, and a total of 2 g of hydromorphone. She is being admitted in this setting for further treatment and evaluation. Review of Systems Review of Systems: Twelve systems were reviewed and are negative except for as per HPI. [facility] Past Medical History Medical History (Updated 11/04/23 @ 23:32 by Rosa Tinajero PA-C) Abdominal aneurysm Anxiety Cystic mass of pancreas Hypothyroidism Migraine headache Surgical History Surgical History (Updated 11/04/23 @ 23:30 by Rosa Tinajero PA-C) History of appendectomy History of section History of endometrial ablation History of tonsillectomy History of tubal ligation Family History Family History Grandparent Breast cancer Mother Graves disease Social History Social History (Updated 11/04/23 @ 23:30 by Rosa Tinajero PA-C) Social History: Surrogate medical decision maker: Dr. Jl Hickman, spouse. Code status: Full code. Smoking status: Never smoker Alcohol intake: current Drinks per week: 3 Substance use: current Substance use type: other Other substance usage details: CBD gummy for sleep Lack of Transportation: No Lack of Food: Never True Current Housing: I Have Housing Concerned About Future Housing: No Difficulty Paying Gas/Electric Bills: No Difficulty Paying for Meds: No Currently Unemployed: No Education: Master's Degree or Higher Difficulty w/ Childcare or Family Care: No Spiritual care concerns: No Meds Home Medications and Allergies Home Medications Medication Instructions Recorded Confirmed Type ondansetron 4 mg disintegrating 4 mg PO ONCE #2 tabs 06/29/21 12
[2023-11-04] MEDS: diazePAM INJ (*CRX) 10 MG/2 ML SYRINGE 2.5 MG IV PUSH (22:28)
[2023-11-05] MEDS: SODIUM CHLORIDE 0.9% IV 1,000 ML 125 ML IV CONT (02:40)
[2023-11-05] MEDS: LEVOTHYROXINE SODIUM 50 MCG TABLET PO (05:39)
[2023-11-05 06:00] VITALS: BP 123/73; PULSE 64; RESP 20; TEMP 37.1; O2SAT 99
[2023-11-05 06:33] LABS: Anion Gap 2 mmol/L (8-16); Blood Urea Nitrogen 8 mg/dL (7-17); CRP 0.9 mg/dL (<1.0); Calcium 7.7 mg/dL (8.4-10.2); Carbon Dioxide 23 mmol/L (22-30); Chloride 111 mmol/L (98-107); Estimated CRCL calculation 96 ml/min; Estimated Glomerular Filt Rate > 60; Glucose 79 mg/dL (65-110); Magnesium 1.8 mg/dL (1.6-2.3); Potassium 3.5 mmol/L (3.4-5.0); Sodium 136 mmol/L (137-145)
--- NOTE | 2023-11-05 08:54 | PM.IMPN ---
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 The patient provides the following history. She felt fine when she woke on morning and as the day progressed she almost suddenly developed a pain throughout the lower abdomen which she describes as a terrible menstrual cramp. That waxed and waned throughout the day and she was able to sleep that evening however the pain was much worse on Sunday. She has a history of constipation and initially attributed her symptoms to that. Suppositories have only caused an increase in pain. CT of the abdomen and pelvis taken on 11/02/2023 showed a 19 mm mass in the uterus with a differential diagnosis to include fibroid, endometrial cancer, and polyp and other stable findings as detailed above. Over the weekend she has treated her pain with Tylenol and she has been able to sleep somewhat with the gummies that she typically takes before bedtime. Today she has continued to have pain ongoing nausea and reports having a couple of episodes of dry heaves. She has not had a bowel movement for nearly 1 weeks time. She denies fever, chills, sweats, hematemesis, hematochezia, melena, dysuria, hematuria, vaginal discharge, and vaginal bleeding. No known sick contacts. In the ED: She was afebrile on arrival with stable vital signs. CMP and CBC were essentially unremarkable. Urinalysis showed trace ketones. Repeat CT of the abdomen pelvis showed multiple segments of proximal small bowel wall thickening suspicious for enteritis and stable pancreatic cystic mass of the body and a stable aneurysm in the right upper abdomen which she is followed for closely at [facility]. a moderate amount of retained fecal material was noted in the colon and rectum. Transvaginal ultrasound showed a 1 cm uterine fibroid. Interventions thus far include 2 L normal saline, 4 mg ondansetron, 10 mg metoclopramide, 15 mg ketorolac, and a total of 2 mg of hydromorphone. She is being admitted in this setting for further treatment and evaluation. 11/05: Objective Data Vital Signs Vital Signs: Vital Signs - 24 hr 12/17/23 11:34 11/04/23 11:54 11/04/23 12:13 Temperature 97.4 F L Pulse Rate 58 L 72 58 L Respiratory Rate 18 16 15 Blood Pressure 155/94 H Pulse Oximetry 100 100 Oxygen Delivery Room Air 11/04/23 12:15 11/04/23 12:30 11/04/23 12:51 Temperature Pulse Rate 60 59 L Respiratory Rate 16 15 Blood Pressure Pulse Oximetry 100 99 100 Oxygen Delivery 11/04/23 13:00 11/04/23 13:15 11/04/23 13:16 Temperature Pulse Rate 56 L Respiratory Rate 8 L Blood Pressure 172/76 H Pulse Oximetry 99 100 100 Oxygen Delivery 11/04/23 13:36 11/04/23 14:12 11/04/23 14:22 Temperature Pulse Rate 53 L 58 L Respiratory Rate 11 L 15 Blood Pressure Pulse Oximetry 98 99 100 Oxygen Delivery 11/04/23 14:30 11/04/23 14:49 11/04/23 15:00 Temperature Pulse Rate 55 L 57 L 59 L Respiratory Rate 12 12 13 Blood Pressure Pulse Oximetry 99 100 Oxygen Delivery 11/04/23 15:01 11/04/23 15:15 11/04/23 15:30 Temperature Pulse Rate 58 L 62 58 L Respiratory Rate 13 13 11 L Blood Pressure 135/77 Pulse Oximetry Oxygen Delivery 11/04/23 15:31 11/04/23 15:45 11/04/23 15:46 Temperature Pulse Rate 58 L 66 62 Respiratory Rate 13 17 16 Blood Pressure 121/68 122/68 Pulse Oximetry Oxygen Delivery 11/04/23 16:09 11/04/23 16:15 11/04/23 16:16 Temperature Pulse Rate 57 L 58 L 61 Respiratory Rate 13 10 L 16 Blood Pressure 128/79 Pulse Oximetry Oxygen Delivery 11/04/23 16:35 11/04/23 18:51 11/04/23 23:05 Temperature 97 F L Pulse
[2023-11-05] MEDS: LINACLOTIDE 72 MCG CAPSULE PO (09:43)
[2023-11-05] MEDS: THERAPEUTIC MULTIVITAMINS/MINERALS TAB (*BKC) 1 TABLET PO (09:43)
[2023-11-05] MEDS: polyethylene glycoL 3350 17 GM POWD.PACK PO (09:43)
[2023-11-05] MEDS: SERTRALINE HCL 50 MG TABLET 100 MG PO (09:44)
[2023-11-05] MEDS: estradioL 1 MG TABLET 2 MG PO (10:29)
--- NOTE | 2023-11-05 10:34 | PC.NURSE ---
Patient wants to talk to the hospitalist about the soap suds enema before RN gives it. Patient stated she just had one last night.
--- NOTE | 2023-11-05 11:52 | PM.DS ---
DS: Admitting Diagnosis Discharge Date 11/05/2023 Admitting Diagnosis Abdominal pain Constipation DS: Discharge Diagnosis Discharge Diagnosis Plan Pt and request patient be discharged as her symptoms have resolved. Advised pt to resume taking the Linzess that was previously prescribed and stopped secondary to diarrhea. Advised to take until having regular bowel movements and cut back to every other day or every 3rd day to keep her regular. Eat a high fiber diet and drink 10-12 cups of fluid per day minimum. Follow up with her primary care provider. 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 The patient provides the following history. She felt fine when she woke on morning and as the day progressed she almost suddenly developed a pain throughout the lower abdomen which she describes as a terrible menstrual cramp. That waxed and waned throughout the day and she was able to sleep that evening however the pain was much worse on Sunday. She has a history of constipation and initially attributed her symptoms to that. Suppositories have only caused an increase in pain. CT of the abdomen and pelvis taken on 11/02/2023 showed a 19 mm mass in the uterus with a differential diagnosis to include fibroid, endometrial cancer, and polyp and other stable findings as detailed above. Over the weekend she has treated her pain with Tylenol and she has been able to sleep somewhat with the gummies that she typically takes before bedtime. Today she has continued to have pain ongoing nausea and reports having a couple of episodes of dry heaves. She has not had a bowel movement for nearly 1 weeks time. She denies fever, chills, sweats, hematemesis, hematochezia, melena, dysuria, hematuria, vaginal discharge, and vaginal bleeding. No known sick contacts. In the ED: She was afebrile on arrival with stable vital signs. CMP and CBC were essentially unremarkable. Urinalysis showed trace ketones. Repeat CT of the abdomen pelvis showed multiple segments of proximal small bowel wall thickening suspicious for enteritis and stable pancreatic cystic mass of the body and a stable aneurysm in the right upper abdomen which she is followed for closely at [facility]. a moderate amount of retained fecal material was noted in the colon and rectum. Transvaginal ultrasound showed a 1 cm uterine fibroid. Interventions thus far include 2 L normal saline, 4 mg ondansetron, 10 mg metoclopramide, 15 mg ketorolac, and a total of 2 g of hydromorphone. She is being admitted in this setting for further treatment and evaluation. 11/05; Call received from who is a primary care physician and states his is requesting to be discharged as her symptoms have resolved and he will make sure she has a good bowel regimend and if she needs an enema he can give that to her. Patient agrees with this plan. Status at Discharge Cognitive/behavioral status at discharge: Pt is a/o x 4 and appear in no distress. Functional status at discharge: independent ambulation Time Spent with Patient Time attestation: Total time spent providing and/or coordinating discharge services: Time spent: Less than 30 minutes Exam Narrative: Patient is a/ox4 and appears no no distress. Const: General: comfortable and no acute distress HENMT: Face/Nose/Sinus: Normal nares present Mouth: Yes moist mucous membranes Eyes: General: appearance normal, both eyes and all related structures Sclera: sclerae normal Pupils: Equal, round and reactive pupils present EOM: EOMs intact bilaterally Neck: Neck: supple and no JVD Resp: Effort [employer] Inspectio
== END 2023-11-05 12:10 | disposition home or self-care (01) ==
LOC: ANHED 15:53 → ANH3MED 11-05 11:37
PROVIDERS: Physician Assistant; Admitting Provider Hospitalist; Emergency Provider Nurse Practitioner Family; PCP Clinical Nurse Specialist; Visit Provider Internal Medicine
DX: R10.32 Left lower quadrant pain (principal); K59.00 Constipation, unspecified; K86.2 Cyst of pancreas; I71.40 Abdominal aortic aneurysm, without rupture, unspecified; D25.9 Leiomyoma of uterus, unspecified; G43.909 Migraine, unspecified, not intractable, without status migrainosus; E86.0 Dehydration; R93.5 Abnormal findings on diagnostic imaging of other abdominal regions, including retroperitoneum; Z79.899 Other long term (current) drug therapy; F41.9 Anxiety disorder, unspecified; E03.9 Hypothyroidism, unspecified; F10.90 Alcohol use, unspecified, uncomplicated; F19.90 Other psychoactive substance use, unspecified, uncomplicated; Z79.890 Hormone replacement therapy; Z79.1 Long term (current) use of non-steroidal anti-inflammatories (NSAID)
CPT/HCPCS: 36415; 74178; 76817; 80048; 80053; 81001; 83690; 83735; 84443; 85025; 85652; 86140; 96360; 96361; 96374; 96375; 96376; 99285; A9270; G0378; J1170; J1885; J2405; J2765; J3360; J7030; Q9967

== ENCOUNTER 2025-04-21 13:48 | Outpatient (CLI) | payer OTHER, SELFPAY ==
--- OUTSIDE RECORDS SUMMARY | 2025-04-21 13:54 | XMS_ITS | Clinical Summary ---
Author Organization [facility] Address [address] [place] [address] Care Team Providers Care Ignition Expert Name Role Phone Unavailable Primary Care Provider Unavailabl e Source Comments [facility],non-owned Affiliates and Associated Physician Practices is amultiple site organization consisting of ambulatory clinics and hospital sitesin [place], [place], [place] and [place]. This disclosure is being madepursuant to the Care Everywhere program and may not contain all information available regarding this patient. Last updated 18.[facility] Social History Tobacco Use Types Packs/Day Years Used Date Smoking Tobacco: Never Assessed Comments Unknown Sex and Gender Information Value Date Recorded Sex Assigned at Not on file Legal Sex Female 4:15 PM CDT Gender Identity Not on file Sexual Orientation Not on file Plan of Treatment Health Maintenance Due Date Last Done Comments COLOGUARD (AGES 45-75) - COL ON CA SCREENING 1963 COLON MONITORING 1963 COLONOSCOPY - COLON CA SCREENING 1963 CT COLONOGRAPHY - COLON CA SCREENING 1963 Colorectal Cancer Screening 1963 FIT - COLON CA SCREENING 1963 FLEX SIG - COLON CA SCREENING 1963 LIPID TESTING 1963 MAMMOGRAM 1963 PAP SMEAR 1963 HIV SCREENING 1978 HEPATITIS C SCREENING 08/24/1981 DTAP/TDAP/TD VACCINES (1 - Tdap) 1982 PNEUMOCOCCAL VACCINE 50+ (1 of 1 - PCV) 2013 ZOSTER VACCINE (1 of 2) 2013 COVID-19 VACCINE ( - 2023-2 5 season) 2024 DEPRESSION SCREENING 11/19/2024 INFLUENZA VACCINE (Season Ended) 2025 Respiratory Syncytial Virus (RSV) Vaccine Pt: or over 60 yrs (1 - 1-dose 75+ series) 2038 HEPATITIS B VACCINE Aged Out No longe r eligible based on patient's age to complete this topic HIB VACCINE Aged Out No longer eligi ble based on patient's age to complete this topic HPV VACCINE Aged Out No longer eligi ble based on patient's age to complete this topic MENINGOCOCCAL (Group B) VACC INE SHARED DECISION-MAKING Aged Out No longer eligibl e based on patient's age to complete this topic MENINGOCOCCAL GROUPS A/C/Y/W VACCINE Aged Out No longer eligible b ased on patient's age to complete this topic
--- OUTSIDE RECORDS SUMMARY | 2025-04-21 13:54 | XMS_ITS | Clinical Summary ---
Author Organization [facility] Address [address] [place] [address] Phone Care Team Providers Care Occupational Therapy Program Director Name Role Phone Unavailable Primary Care Provider Unavailabl e Immunizations Immunization Administration Dates Next Due INFLUENZA VACCINE QUADRIVALENT 6 MOS UP PF IM ,09/21/2022 Social History Tobacco Use Types Packs/Day Years Used Date Smoking Tobacco: Never Assessed Comments Unknown Sex and Gender Information Value Date Recorded Sex Assigned at Not on file Legal Sex Female 8:15 AM CDT Gender Identity Not on file Sexual Orientation Not on file Plan of Treatment Health Maintenance Due Date Last Done Comments DTAP/TDAP/TD VACCINES (1 - Tdap) 1982 HPV/Cotest (21-29) 1984 CERVICAL CANCER SCREENING 1993 HPV/Cotest (30-65) 1993 PAP SMEAR 1993 BREAST CANCER SCREENING 2003 COLORECTAL SCREENING 2008 Colorectal Cancer Screening 2008 FIT-DNA Q 3 years 2008 FIT/FOBT Q 1 year 2008 Flex Sig/CT Colonography Q 5 years 2008 ZOSTER VACCINE (1 of 2) 2013 INFLUENZA VACCINE (#1) 2024 08/16/2023, 2021 RSV VACCINE (60+ or ) (1 - 1-dose 75+ series) 2038 Insurance RX [employer] Member Subscriber Plan / Payer (Ef fective 2022-Present) Name:Melanie France Relation to Subscriber:Spouse Name:MARICRUZ FRANCE Payer ID:Not on file Type:RX Commercial Address: [address]
--- OUTSIDE RECORDS SUMMARY | 2025-04-21 13:54 | XMS_ITS | Referral Summary ---
Author Organization [facility] Address [address] [place] [address] Care Team Providers Care Manager Proposal Name Role Phone Jl Hickman DO Primary Care Provider [phone]- [phone] Allergies No known active allergies Medications estradiol-norethin drone (ACTIVELLA) 0.5-0.1 mg per tablet Take 1 tablet by mouth nightly 0 Active sertraline (ZOLOFT) 50 mg tablet Take 50 mg by mouth nightly 0 Active doxepin (SINEquan) 10 mg capsule Take 10 mg by mouth nightly 0 Active SUMAtriptan (IMITREX) 50 mg tablet TAKE ONE TABLET BY MOUTH AT ONSET OF MIGRAINE. IF SYMPTOMS PERSIST A SECOND DOSE MAY BE TAKEN IN 2 HOURS. DO NOT EXCEED 2 DOSES IN A 24 HOUR 0 Active loratadine (CLARITIN) 10 mg tablet Take 10 mg by mouth every morning Active triamcinolone acetonide (NASACORT NASL) Administer into affected nostril(s) as needed Active ondansetron ODT (ZOFRAN-ODT) 4 mg disintegrating tablet DISSOLVE 1 TO 2 TABLETS IN MOUTH EVERY 6 HOURS NEEDED FOR NAUSEA AND FOR VOMITING 0 Active acetaminophen (TYLENOL) 500 mg tablet Take 2 tablets (1,000 mg total) by mouth every 6 (six) hours 60 tablet 0 Active clonazePAM (KlonoPIN) 0.5 mg tablet 0 1 Active predniSONE (DELTASONE) 5 mg tablet Take 2 tablets (10 mg) by mouth 2 (two) times a day Lower by 5 mg every 5 days 120 tablet [address] (NexIUM) 20 mg capsule Take 20 mg by mouth daily before breakfast Active levothyroxine (SYNTHROID) 50 mcg tablet for liquid preparation Take 50 mcg by mouth daily 30 tablet 11 1 Active meloxicam (MOBIC) 15 mg tabletIndications: Left hip pain Take 1 tablet by mouth once daily 30 tablet 4 Active Active Problems Problem Noted Date Diagnosed Date Thyroiditis 04/28/2021 Assessment & Plan (09/09/2021 2:03 PM CDT): Check TSH, free T4 and free T3 Consider increasing dose of levothyroxine if TSH is over 2 Assessment & Plan (04/28/2021 4:27 PM CDT): I explained to the patient how her clinical picture is highly suggestive of thyroiditis, going now into the cold phase. A thyroid ultrasound done today, shows a very heterogeneous, nodular thyroid, with decreased blood supply, suggestive of thyroiditis. I explained to the patient how thyroiditis has an initial hot Phase with signs and symptoms of thyrotoxicosis, then a cold phase that can cause hypothyroid symptoms and finally recovery into euthyroid state. However, the hypothyroid phase can last for many weeks or months and some symptomatic patien's may need temporary L T4 replacement therapy. The goal of treatment for now is to alleviate the pain and discomfort with steroids. Stay on prednisone 10 mg twice a day for 5 days and start tapering down by 5 mg every 5 days. Continue Propranolol for now, until symptoms start subsiding. . Will recheck thyroid function test in 4 weeks, including TPO antibodies and TSI. Carpal tunnel syndrome, left 07/27/2020 Overview (07/27/2020): Added automatically from request for surgery [id number] Immunizations Immunization Administration Dates Next Due Influenza, Quadrivalent, Heather l Culture-based MDCK, Preservative Free, Antibiotic Free, Intramuscular 08/31/2020 Influenza, Quadrivalent, Spl it, Preservative Free, Intramuscular 09/10/2019 Influenza, Trivalent, IM (MDV) 10/18/2014 Influenza, Trivalent, Preservative Free, Intramu scular 10/25/2016 ZOSTER LIVE 09/25/2018 Social History Tobacco Use Types Packs/Day Years Used Date Smoking Tobacco: Never Smokeless Tobacco: Never Alcohol Use Standard Drinks/Week Comments Yes 3 (1 standard drink = 0.6 oz pur e alcohol) AUDIT-C Answer Date Recorded Q1: How often do you have a drink containing alc ohol? 2-3 times a week 07/18/2021 Q2: How many drinks containi ng alcohol do you have on a typical day when you are drinking? 1 or 2 07/18/2021 Q3: How often do you have si x or more drinks on one occasion? 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 Gender Identity Female 02/04/2024 7:39 PM CDT Sexual Orientation Straight 02/04/2024 7: 39 PM CDT Last Filed Vital Signs Vital Sign Reading Time Taken Comments Blood Pressure 123/83 02/09/2023 12:33 PM CDT Pulse 63 02/09/2023 12:33 PM CDT Temperature 36 C (96.8 F) 07/18/2021 10:59 AM CDT Respiratory Rate 17 09/09/2021 11:44 AM CDT Oxygen Saturation 100% 07/18/2021 11:19 AM CDT Inhaled Oxygen Concentration - - Weight 63.1 kg (139 lb 1.6 oz) 02/09/2023 12:33 PM CDT Height 171.5 cm (5' 7.5) 02/09/2023 12:33 PM CD T Body Mass Index 21.46 02/09/2023 12:33 PM CDT Plan of Treatment Not on file Procedures Procedure Name Priority Date/Time Associated Diagnosis Comments SCREENING MAMMOGRAM Routine 09/10/2014 4 :09 PM CDT from Last 3 Months or Most Recently Relevant to Health Maintenance Results * Screening Mammogram (09/10/2014 4:09 PM CDT) Anatomical Region Laterality Modality Breast N/A Mammography 09/10/2014 4:09 PM CDT Narrative 09/11/2014 10:34 AM CDT BLAISE CODY M.D. FINAL REPORT ACC# Date Time Exam [id number] Sep 10, 2014 16:09:00 [facility] [address] Screening Mamm Bilat Technologist(s): Mallory Pena; ; EXAMINATION: Mammogram Technique: Bilateral Full-Field Digital Screening Mammogram was performed. Views obtained: bilateral craniocaudal and bilateral mediolateral oblique. Computer Aided Detection was performed with [employer] 1.3 version 9.3. Mammogram Findings: There are scattered fibroglandular densities. There are bilateral sub-pectoral silicone gel implants. There is no suspicious abnormality in either breast. Normal implants. IMPRESSION: Implants are mammographically intact. Annual screening mammography is recommended. OVERALL FINAL ASSESSMENT: BI-RADS CATEGORY 1: Negative. Requested By: Dictated By: BLAISE CODY M.D. on Sep 11 2014 10:34A This document has been electronically signed by: BLAISE CODY M.D. on Sep 11 2014 10:34A Procedure Note Provider, MD Jojo - 03/19/2017 BALISE CODY M.D. FINAL REPORT ACC# Date Time Exam [id number] Sep 10, 2014 16:09:00 [facility] [address] Screening Mamm Bilat Technologist(s): Mallory Pena; ; EXAMINATION: Mammogram Technique: Bilateral Full-Field Digital Screening Mammogram was performed. Views obtained: bilateral craniocaudal and bilateral mediolateral oblique. Computer Aided Detection was performed with [employer] 1.3 version 9.3. Mammogram Findings: There are scattered fibroglandular densities. There are bilateral sub-pectoral silicone gel implants. There is no suspicious abnormality in either breast. Normal implants. IMPRESSION: Implants are mammographically intact. Annual screening mammography is recommended. OVERALL FINAL ASSESSMENT: BI-RADS CATEGORY 1: Negative. Requested By: Dictated By: BLAISE CODY M.D. on Sep 11 2014 10:34A This document has been electronically signed by: BLAISE CODY M.D. on Sep 11 2014 10:34A us Historical Provider MD [facility] MAMMO PROCEDURES Myrna l Result from Last 3 Months or Most Recently Relevant to Health Maintenance Insurance [employer] PPO [employer] PPO Advance Directives For more information, please contact: [phone] * Full Code (Latest Code Status on File) Date Activated Date Inactivated Comments 07/18/2021 9:47 AM 07/18/2021 3:49 PM Care Teams Manager Proposal Relationship Specialty Start Date End Date Jl Hickman DO PCP - General Internal Medicine 12/19/19
--- OUTSIDE RECORDS SUMMARY | 2025-04-21 13:54 | XMS_ITS | Clinical Summary ---
Author Organization [facility] Address [address] [place] [address] Care Team Providers Care Salon Sales Consultant Name Role Phone Jl Hickman DO Primary Care Provider +1- [phone] Allergies No known active allergies Medications estradiol-norethin [...] (07/27/2020): Added automatically from request for surgery [id number] Immunizations Immunization Administration Dates Next Due Influenza, Quadrivalent, Heather l Culture-based MDCK, Preservative Free, Antibiotic Free, Intramuscular 08/31/2020 Influenza, Quadrivalent, Spl it, Preservative Free, Intramuscular 09/10/2019 Influenza, Trivalent, IM (MDV) 10/18/2014 Influenza, Trivalent, Preservative Free, Intramu scular 10/25/2016 ZOSTER LIVE 09/25/2018 Surgical History Surgery Date Site/Laterality Comments SECTION x 3 TONSILLECTOMY APPENDECTOMY TRANSUMBILICAL AUGMENTATION MAMMAPLASTY 11/19/2008 - 11/18/2009 Medical History Medical History Date Comments Migraine PONV (postoperative nausea and vomiting) Improved with scopolamine patch and zofran Thyroiditis Depression Anxiety Family History Medical History Relation Name Comments Sjogren's syndrome Father Graves' disease Mother Anesthesia problems Neg Hx Relation Name Status Comments Father Mother Social History Tobacco Use Types Packs/Day Years [...] on file Legal Sex 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 Gender Identity Female 02/04/2024 7:39 PM CDT Sexual Orientation Straight 02/04/2024 7: 39 PM CDT Obstetrics History Last Filed Vital Signs Vital Sign Reading [...] 02/09/2023 12:33 PM CDT Plan of Treatment Health Maintenance Due Date Last Done Comments Cervical Cancer Screening 1963 Colon Cancer Screening-Colonoscopy 1965 Hepatitis C Screening 1963 DTaP/Tdap/Td Vaccine (1 - Tdap) 1974 Hepatitis B Screening 1981 Regular Well Visit/Exam 18-64 1981 Breast Cancer Screening-Mammogram 09/10/2015 09/10/2014 Zoster Vaccine (2 of 3) 11/20/2018 09/25/2018 Depression Screening 09/09/2022 09/09/2021, 04/28/20 21 Influenza Vaccine (Season Ended) 2025 09/05/2023, 09/21/2022, 08/31/2020, Additional history exists Pneumococcal vaccine <65 Aged Out No longer eligible based on patient's age to complete this topic Procedures Procedure Name Priority Date/Time Associated Diagnosis Comments SCREENING MAMMOGRAM Routine 09/10/2014 4 :09 PM CDT from Last 3 Months or Most Recently Relevant to Health Maintenance Results * Screening Mammogram (09/10/2014 4:09 PM CDT) Anatomical Region Laterality Modality Breast N/A Mammography 09/10/2014 4:09 PM CDT Narrative 09/11/2014 10:34 AM CDT BLAISE CODY M.D. FINAL REPORT ACC# Date Time Exam [id number] Sep 10, 2014 16:09:00 [facility] [id number] Screening Mamm Bilat Technologist(s): Mallory Pena; ; EXAMINATION: Mammogram Technique: Bilateral Full-Field Digital Screening Mammogram was performed. Views obtained: bilateral craniocaudal and bilateral mediolateral oblique. Computer Aided Detection was performed with [employer].3 version 9.3. Mammogram Findings: There are scattered [...] Procedure Note Provider, MD Jojo - 03/19/2017 BLAISE CODY M.D. FINAL REPORT ACC# Date Time Exam [id number] Sep 10, 2014 16:09:00 [facility] [address] Screening Mamm Bilat Technologist(s): Mallory Pena; ; EXAMINATION: Mammogram Technique: Bilateral Full-Field Digital Screening Mammogram was performed. Views obtained: bilateral craniocaudal and bilateral mediolateral oblique. Computer Aided Detection was performed with [employer].3 version 9.3. Mammogram Findings: There are scattered [...] CODY M.D. on Sep 11 2014 10:34A Historical Provider MD [facility] MAMMO PROCEDURES Myrna l Result from Last 3 Months or Most Recently Relevant to Health Maintenance Insurance [employer] PPO HE[employer] PPO [employer] PPO Advance Directives For more information, please contact: [phone] * Full Code (Latest Code Status on File) Date Activated Date Inactivated Comments 07/18/2021 9:47 AM 07/18/2021 3:49 PM Care Teams Salon Sales Consultant Relationship Specialty Start Date End Date Jl Hickman DO PCP - General Internal Medicine 12/19/19
--- OUTSIDE RECORDS SUMMARY | 2025-04-21 13:54 | XMS_ITS | Encounter Summary ---
Author Organization [facility] Address [address] [place] [address] Phone Care Team Providers Care Diesel Engine Pipe Fitter Name Role Phone Jl Hickman DO Primary Care Provider +1- [phone] Encounter Details Date Type Department Care Team (Late st Contact Info) Description 06/14/2021 Orders Only [facility] Scanning, Provider Social History Tobacco Use Types Packs/Day Years Used Date Smoking Tobacco: Never Smokeless Tobacco: Never Alcohol Use Standard Drinks/Week Comments Yes 3 (1 standard drink = 0.6 oz pur e alcohol) PHQ-2 Answer Date Recorded PHQ-2 Total Score (If total score is 3 or more points, staff should administer the PHQ-9) 0 04/28/2021 Comments No Sex and Gender Information Value Date Recorded Sex Assigned at Not on file 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 Gender Identity Female 02/04/2024 7:39 PM CDT Sexual Orientation Straight 02/04/2024 7: 39 PM CDT documented as of this encounter Plan of Treatment Not on file documented as of this encounter Procedures Procedure Name Priority Date/Time Associated Diagnosis Comments SCAN - RADIOLOGY/IMAGING 06/14/2021 documented in this encounter Results * SCAN - RADIOLOGY/IMAGING (06/14/2021) Anatomical Region Laterality Modality Other us Provider Scanning Final Result documented in this encounter Visit Diagnoses Not on filedocumented in this encounter Care Teams Diesel Engine Pipe Fitter Relationship Specialty Start Date End Date Jl Hickman DO PCP - General Internal Medicine 12/19/19 documented as of this encounter
--- OUTSIDE RECORDS SUMMARY | 2025-04-21 13:54 | XMS_ITS | Encounter Summary ---
Author Organization [facility] Address [address] [place] [address] Care Team Providers Care Umbrella Finisher Name Role Phone Unavailable Primary Care Provider Unavailabl e Encounter Details Date Type Department Care Team (Late st Contact Info) Description 03/22/2023 Lab Requisition [facility] DermPath Lab [address] [place] [address] Sj Acosta MD [address] [place] [address] Social History Tobacco Use Types Packs/Day Years Used Date Smoking Tobacco: Never Assessed Comments Unknown Sex and Gender Information Value Date Recorded Sex Assigned at Not on file Legal Sex Female 4:15 PM CDT Gender Identity Not on file Sexual Orientation Not on file documented as of this encounter Plan of Treatment Not on file documented as of this encounter Procedures Procedure Name Priority Date/Time Associated Diagnosis Comments DERMATOPATHOLOGY Routine 03/21/2023 3:33 AM CDT documented in this encounter Results * DERMATOPATHOLOGY (03/21/2023 3:33 AM CDT) Case Report Dermatopathology Report Case: [id number] Authorizing Provider: Sj Acosta MD Collected: 03/21/2023 03:33 AM Ordering Location: [facility] DermPath Lab Received: 03/22/2023 06:19 AM Pathologist: Alie Kelsey MD Specimens: A) - Skin, left mid back B) - Skin, left upper back 4:31 PM CDT DERMATOPATHOLOGY LABORATORY Final Diagnosis Specimen A. SKIN, left mid back: BASAL CELL CARCINOMA, INFILTRATIVE PATTERN (C44.519) (see microscopic description) Specimen B. SKIN, left upper back: COMPOUND MELANOCYTIC NEVUS, IRRITATED (D22.5) 05/05/202 3 4:31 PM CDT DERMATOPATHOLOGY LABORATORY at 1631 CDT Clinical History A: BCCA vs SCCA Path#[id number] B: Nevus vs SK vs MM Path#[id number] 3 4:31 PM CDT DERMATOPATHOLOGY LABORATORY Gross Description Specimen A: Received is one formalin filled container labeled with the patient's name and designated left mid back. The specimen consists of a shave biopsy measuring 8x7x1 mm. Jar 0. Specimen B: Received is one formalin filled container labeled with the patient's name and designated left upper back. The specimen consists of a shave biopsy measuring 4x3x1 mm. Jar 0. 3 4:31 PM T DERMATOPATHOLOGY LABORATORY Microscopic Description Specimen A. SKIN, left mid back: Within the dermis there are nodular aggregates of basaloid cells associated with fibromyxoid stroma and epithelial-stromal clefts. At the advancing margin of the neoplasm, there are smaller angulated nests that infiltrate the dermis. There are also areas with squamous differentiation. There is a lymphohistiocytic infiltrate within the dermis. By immunohistochemistr y, pancytokeratin highlights lesional cells. CD163 is positive in scattered histiocytes. Additional deeper sections were obtained and reviewed. Specimen B. SKIN, left upper back: There is melanin pigment in the stratum corneum. There are nests of melanocytes at the dermal-epidermal junction and within the dermis. 3 4:31 PM T DERMATOPATHOLOGY LABORATORY Disclaimer An external and internal positive and negative controls are appropriate for the histochemical, immunohistochemical and immunofluorescence stain(s) in this case (if any), except where stated explicitly. The performance characteristics of the stain(s) cited in this report were developed and its performance characteristic determined by the Dermatopathology Laboratory at [facility], directed by Dr. Zoe Kasper. These tests need not be, and therefore are not, approved by the [place] Food and Drug Administration. The tests are used for clinical purposes. Billing Codes Specimen Charges Stain Charges 97460 75699 1 1 [id number] 1 1 3 4:31 PM CDT DERMATOPATHOLOGY LABORATORY Embedded Images 3 4:31 PM T DERMATOPATHOLOGY LABORATORY Pathology/Cytology TISSUE SPECIMEN FROM SKIN / Unknown 03/21/2023 3:33 AM CDT 03/22/2023 6:19 AM CDT Miscellaneous samples (specimen) TISSUE SPECIMEN FROM SKIN / Unknown 03/21/2023 3:33 AM CDT 03/22/2023 6:19 AM CDT us Sj Acosta MD LAB - PATHOLOGY/CYTOLOGY ORDER JUA NR Final Result DERMATOPATHOLOGY LABORATORY [facility] - Department of Dermatology [facility] [address] [place] [address], [address] [phone] documented in this encounter Visit Diagnoses Not on filedocumented in this encounter
[2025-04-21 19:13] LABS: Basophils Percent Auto 0.7 % (0.2-1.2); Eosinophils Percent Auto 0.5 % (0-4.4); Hematocrit 33.1 % (37.0-47.0); Hemoglobin 11.1 g/dL (12.0-15.0); Immature Granulocyte Absolute 0.01 K/mm3 (0.00-0.031); Immature Granulocyte Percent A 0.2 % (0-0.5); Lymphocytes Absolute Auto 1.23 K/mm3 (0.9-3.2); Lymphocytes Percent Auto 29.6 % (18.3-44.2); Mean Corpuscular HGB Conc 33.5 g/dl (32-36); Mean Corpuscular Hemoglobin 32.9 pg (26-34); Mean Corpuscular Volume 98.2 fl (80-100); Mean Platelet Volume 9.6 fl (7.4-10.4); Monocytes Absolute Auto 0.3 K/mm3 (0.1-0.6); Monocytes Percent Auto 7.7 % (2.6-8.5); Neutrophils Absolute Auto 2.5 K/mm3 (1.3-6.7); Neutrophils Percent Auto 61.3 % (45.5-73.1); Platelet Count Result 189 k/mm3 (150-375); Red Blood Count 3.37 M/mm3 (4.2-5.4); Red Cell Distribution Width 11.9 % (11.5-14.5); White Blood Count 4.2 K/mm3 (4.5-10.0)
[2025-04-21 19:45] LABS: Erythrocyte Sedimentation Rate 18 mm/hr (0-20)
[2025-04-21 22:25] LABS: Alanine Aminotransferase 42 U/L (6-35); Alkaline Phosphatase 66 U/L (38-126); Anion Gap 6 mmol/L (4-12); Aspartate Amino Transferase 39 U/L (14-36); Bilirubin,Total 0.4 mg/dL (0.2-1.3); Blood Urea Nitrogen 26 mg/dL (7-17); CRP < 0.5 mg/dL (<1.0); Carbon Dioxide 25 mmol/L (22-30); Chloride 105 mmol/L (98-107); Estimated Glomerular Filt Rate > 60; Glucose 111 mg/dL (65-110); Magnesium 1.9 mg/dL (1.6-2.3); Potassium 4.2 mmol/L (3.4-5.0); Sodium 136 mmol/L (137-145); Total Protein 6.5 g/dL (6.3-8.2)
[2025-04-21 22:30] LABS: Free T3 2.54 pg/mL (2.45-5.93); Free T4 Free Thyroxine 1.13 ng/dL (0.78-2.19)
[2025-04-21 22:48] LABS: Thyroid Stimulating Hormone 0.437 uIU/mL (0.465-4.680)
[2025-04-21 23:28] LABS: Folic Acid > 20.0 ng/mL (2.76->20); Vitamin B12 > 1000.0 pg/mL (239-931)
== END 2025-04-21 13:49 | disposition home or self-care (01) ==
LOC: ANHGOSHLAB 13:50
PROVIDERS: PCP Clinical Nurse Specialist; Visit Provider Internal Medicine
DX: G47.10 Hypersomnia, unspecified (principal); R53.83 Other fatigue; R63.0 Anorexia; E03.9 Hypothyroidism, unspecified
CPT/HCPCS: 36415; 80053; 82607; 82746; 83735; 84439; 84443; 84481; 85025; 85652; 86140